=== PATIENT | male | born 1975 | race Caucasian/White ===

== ENCOUNTER 2020-08-01 13:50 | Emergency (ER) | payer BC ==
[~2020-08-01] VITALS: Ht 182.9 cm; Wt 97.5 kg
[2020-08-01 13:59] VITALS: Ht 182.9 cm; Wt 97.5 kg
[2020-08-01 15:27] LABS: BASOPHIL % 0.5 % (0-2); PLATELET COUNT 254 x10^3mcL (130-400); RED CELL DISTRIBUTION WIDTH 13.5 % (11.5-14.5)
[2020-08-01 15:33] LABS: CALCIUM 8.9 mg/dL (8.5-10.1); CARBON DIOXIDE 25.9 mmol/L (21-32); CHLORIDE SERUM 99 mmol/L (98-107); CREATININE SERUM 1.1 mg/dL (0.7-1.3); GFR1 > 60 mL/min; GLUCOSE SERUM 297 mg/dL (74-106); POTASSIUM SERUM 3.6 mmol/L (3.5-5.1); SODIUM SERUM 136 mmol/L (136-145)
[2020-08-01 15:38] LABS: ALBUMIN 3.4 g/dL (3.4-5.0); ALKALINE PHOSPHATASE 64 U/L (46-116); ALT/SGPT 23 U/L (16-63); AST/SGOT 12 U/L (15-37); C REACTIVE PROTEIN 4.5 mg/dL (<=0.9); TOTAL PROTEIN, SERUM 7.2 g/dL (6.4-8.2); URIC ACID 6.1 mg/dL (3.5-7.2)
[2020-08-01 16:14] LABS: ERYTHROCYTE SED RATE 16 mm/hr (0-15)
[2020-08-01 19:28] VITALS: BP 168/97
== END 2020-08-01 19:29 | disposition home or self-care (01) ==
LOC: ED 13:50
PROVIDERS: Emergency Medicine
DX: E11.621 Type 2 diabetes mellitus with foot ulcer (principal); I10 Essential (primary) hypertension
CPT/HCPCS: 82962; J2543; J3370; J7030; J7040